=== PATIENT | female | born 1950 | race Caucasian/White ===

== ENCOUNTER 2016-09-07 09:11 | Day surgery (SDC) | payer MEDICARE, BC ==
[2016-09-05 11:34] LABS: PATH.CAST-FLAG NOT PRESENT; SPERM-FLAG NOT PRESENT; SRC-FLAG NOT PRESENT; XTAL-FLAG NOT PRESENT; YLC-FLAG NOT PRESENT
[2016-09-05 11:47] LABS: BLOOD UREA NITROGEN 25 mg/dL (7-18)
[2016-09-05 11:52] LABS: ASPARTATE AMINO TRANSFERASE 22 U/L (15-37)
[~2016-09-07] VITALS: Ht 157.5 cm; Wt 113.5 kg
[~2016-09-07 09:11] MED LIST: ABAT125S SC; ALBU8.5H3 INH; ASPI-621 PO; BENZ100C PO; DICLOFENAC GEL TP; FOLI-17 PO; GABAPENTIN PO; HUM100VI SC; HYDR-3144 PO; LISI-170 PO; LOSA100T6 PO; METF500T4 PO; METH2.5T PO; MULT-520 PO; NATURAL CALCIUM PO; PRED5TAB PO; VITAMIN D3 PO
[2016-09-07] MEDS ORDERED: LACTATED RINGERS 1,000 ML IV SCH (09:34)
[2016-09-07 10:07] VITALS: BP 135/70
[2016-09-07] MEDS ORDERED: MIDAZOLAM 1 MG/ML, 2ML ONE (11:29)
[2016-09-07] MEDS ORDERED: FENTANYL PF 250 MCG/5ML ONE (11:29)
[2016-09-07] MEDS ORDERED: ROCURONIUM 10 MG/ML ONE (12:18)
[2016-09-07] MEDS ORDERED: GLYCOPYRROLATE 0.2MG/1ML ONE (12:18)
[2016-09-07] MEDS ORDERED: PROPOFOL 10 MG/ML, 20ML ONE (12:18)
[2016-09-07] MEDS ORDERED: SUCCINYLCHOLINE 20 MG/ML, 10ML ONE (12:18)
[2016-09-07] MEDS ORDERED: ONDANSETRON 2MG/ML, 2ML ONE (12:18)
[2016-09-07] MEDS ORDERED: NEOSTIGMINE 1 MG/ML, 10ML ONE (12:18)
[2016-09-07] MEDS ORDERED: CEFAZOLIN 1,000 MG ONE (12:18)
[2016-09-07] MEDS ORDERED: ALBUTEROL SULFATE 200 PUFFS/8.5 GR INH ONE (12:18)
[2016-09-07] MEDS ORDERED: MITOMYCIN 40 MG in STERILE WATER 20 ML INTVESIC ONE (12:30)
[2016-09-07] MEDS ORDERED: HYDROcodone/APAP 7.5-325MG/15ML UDC ONE (13:23)
[2016-09-07] MEDS ORDERED: FENTANYL PF 100 MCG/2ML ONE (13:23)
[2016-09-07] MEDS: FENTANYL PF 100 MCG/2ML IV PRN ×2 (13:25→13:42)
[2016-09-07] MEDS ORDERED: MEPERIDINE/PF 25MG/0.5ML IVPush PRN (13:30)
[2016-09-07] MEDS ORDERED: OXYcodone 5 MG/5 ML ORAL.SOL UDC PO PRN (13:30)
[2016-09-07] MEDS ORDERED: ONDANSETRON 2MG/ML, 2ML IVPush PRN (13:30)
[2016-09-07] MEDS ORDERED: EPHEDRINE 50 MG/ML, 1ML IVPush PRN (13:30)
[2016-09-07] MEDS ORDERED: PROMETHAZINE 25 MG/ML, 1ML IV PRN (13:30)
[2016-09-07] MEDS ORDERED: MIDAZOLAM 1 MG/ML, 2ML IV PRN (13:30)
[2016-09-07] MEDS ORDERED: HYDROcodone/APAP 7.5-325MG/15ML UDC PO PRN (13:30)
[2016-09-07] MEDS ORDERED: HYDROmorphone 1 MG/ML, 1ML IV PRN (13:30)
[2016-09-07] MEDS ORDERED: hydrALAzine 20 MG/ML, 1ML IV PRN (13:30)
[2016-09-07] MEDS ORDERED: ACETAMINOPHEN 325 MG TABLET PO PRN (13:30)
[2016-09-07] MEDS ORDERED: LABETALOL 5MG/ML, 20ML IV PRN (13:30)
== END 2016-09-07 15:50 ==
LOC: OUT 09:11
PROVIDERS: ATTEND Urology
DX: D09.0 Carcinoma in situ of bladder (principal); E78.5 Hyperlipidemia, unspecified; E11.9 Type 2 diabetes mellitus without complications; Z79.4 Long term (current) use of insulin; Z87.39 Personal history of other diseases of the musculoskeletal system and connective tissue; Z87.440 Personal history of urinary (tract) infections; Z90.49 Acquired absence of other specified parts of digestive tract; Z98.890 Other specified postprocedural states; Z87.891 Personal history of nicotine dependence
CPT/HCPCS: 36415; 52235; 80053; 81001; 82962; 85025; 85610; 85730; 87086; 88305; 88307; 93005; J0330; J0690; J2250; J2405; J2704; J2710; J3010; J9280; J3490

== ENCOUNTER 2018-05-21 17:11 | Inpatient (IN) | payer MEDICARE, BC ==
[~2018-05-21] VITALS: Ht 157.5 cm; Wt 116.2 kg
[~2018-05-21 17:11] MED LIST changes: -ALBU8.5H3 INH; +ALBU8.5H8 INH; -ASPI-621 PO; +ASPI81TA45 PO; -HYDR-3144 PO; +HYDR-3245 PO; +LOSA100T14 PO; -LOSA100T6 PO; +METF500T17 PO; -METF500T4 PO
[2018-05-21] MEDS ORDERED: SODIUM CHLORIDE FLUSH 10ML SYR IVF ONE ×2 (18:00→19:00)
--- NOTE | 2018-05-21 18:00 | NUR ---
LIBERTAD GORDON FROM [place] FOR ABD PAIN POST BLADDER REMOVAL AND UROSTOMY FOR BLADDER CA. PT PLACED ON MONITOR. PROVIDER AT BEDSIDE
--- NOTE | 2018-05-21 18:33 | NUR ---
PT BACK FROM XRAY, UA SENT. LAB AT BEDSIDE TO DRAW [id number]
[2018-05-21 18:37] LABS: MEAN CORPUSCULAR HEMOGLOBIN 31.9 pg (27.0-34.8); MEAN CORPUSCULAR HGB CONC 32.8 g/dL (32.4-35.8); MEAN CORPUSCULAR VOLUME 97.2 fL (80-100); MEAN PLATELET VOLUME 6.9 fL (7.4-10.4); PLATELET COUNT 390 x10^3/uL (130-400); RED BLOOD COUNT 2.62 x10^6/uL (3.82-5.3); RED CELL DISTRIBUTION WIDTH 17.8 % (9.6-15.2)
[2018-05-21 18:48] LABS: ALBUMIN 1.7 g/dL (3.4-5.0); ANION GAP 8 mmol/L (5-15); CALCIUM 9.3 mg/dL (8.5-10.1); CHLORIDE 98 mmol/L (98-107); CREATININE 4.03 mg/dL (0.55-1.02)
[2018-05-21 18:49] LABS: CULTURE INDICATED? YES; MICROSCOPIC INDICATED
[2018-05-21 18:52] LABS: TROPONIN I < 0.015 ng/mL (0.000-0.045)
[2018-05-21 18:56] LABS: MD YES
[2018-05-21 18:58] LABS: BAND#(MANUAL) 2.18 x10^3/uL; BANDS%(MANUAL) 12 % (0-7); LYMPH#(MANUAL) 0.55 x10^3/uL (1-3.4); LYMPHS% (MANUAL) 3 % (22-44); METAMYELOCYTES# (MANUAL) 0.36 x10^3/uL (0-0); METAMYELOCYTES% (MANUAL) 2 % (0-1); POLYCHROMASIA 1+; SEG#(MANUAL) 15.11 x10^3/uL (1.8-6.8); SEGS% (MANUAL) 83 % (42-75)
[2018-05-21 18:59] LABS: ANISOCYTOSIS 1+; BASOPHILLIC STIPPLING 1+; TOXIC GRAN 1+
[2018-05-21 19:00] LABS: <PLATELET ESTIMATE> ADEQUATE; LARGE PLATELETS 1+
[2018-05-21] MEDS ORDERED: PIPERACILLIN/TAZO/PMX 3.375GM 50 ML IV ONE (19:00)
[2018-05-21] MEDS ORDERED: VANCOMYCIN PER PHARMACY MC PRN ×2 (19:00→22:00)
[2018-05-21] MEDS ORDERED: VANCOMYCIN 1,600 MG in SODIUM CHLORIDE 0.9% 250 ML IV ONE (19:00)
[2018-05-21] MEDS ORDERED: SODIUM CHLORIDE 0.9% 1,000ML IVBOLUS ONE ×2 (19:00→20:00)
--- NOTE | 2018-05-21 19:05 | NUR ---
REPORT RECEIVED FROM VINH GUO.
[2018-05-21] MEDS ORDERED: PIPERACILLIN/TAZO/PMX 3.375GM 50 ML ONE (19:10)
--- NOTE | 2018-05-21 19:20 | NUR ---
PT MEDICATED PER EMAR. PT TOLERATED WELL. PT'S AOX4. RESPS EVEN AND UNLABORED.
--- NOTE | 2018-05-21 19:29 | NUR ---
US AT BEDSIDE.
[2018-05-21] MEDS ORDERED: ACET650S21 PO (19:32)
[2018-05-21] MEDS ORDERED: APIX5TAB PO (19:33)
[2018-05-21] MEDS ORDERED: CALC1CAP8 PO (19:34)
[2018-05-21] MEDS ORDERED: DICLOFENAC SODIUM (19:35)
[2018-05-21] MEDS ORDERED: FERR-51 PO (19:35)
[2018-05-21] MEDS ORDERED: FOLVITE (19:36)
[2018-05-21] MEDS ORDERED: FURO20TA3 PO (19:37)
[2018-05-21] MEDS ORDERED: HYDR200T72 PO (19:38)
[2018-05-21] MEDS ORDERED: POTA20TA89 PO (19:41)
[2018-05-21] MEDS ORDERED: SULF500T PO (19:41)
--- NOTE | 2018-05-21 20:05 | NUR ---
PT PROVIDED WATER. EDMD NOTIFIED.
--- NOTE | 2018-05-21 20:16 | NUR ---
PT IN CT NOW.
--- NOTE | 2018-05-21 20:17 | NUR ---
BP 88/40 AT THIS TIME. EDMD NOTIFIED.
--- NOTE | 2018-05-21 21:07 | NUR ---
PT C/O EAST AT THIS TIME AND REQUESTING MED. EDMD NOTIFIED.
[2018-05-21] MEDS ORDERED: HEPARIN 5,000 UNITS/ML, 1ML IV ONE (21:30)
[2018-05-21] MEDS ORDERED: ONDANSETRON 2MG/ML, 2ML IVPush ONE (21:30)
[2018-05-21] MEDS ORDERED: MORPHINE SULFATE 4 MG/ML, 1ML IVPush PRN (21:30)
[2018-05-21] MEDS ORDERED: HEPARIN 5,000 UNITS/ML, 1ML IV PRN (21:30)
[2018-05-21] MEDS ORDERED: HEPARIN 25,000 UNITS/500ML PMX 500 ML IV PRN (21:30)
[2018-05-21] MEDS ORDERED: POLYETHYLENE GLYCOL 17 GM PACKET PO PRN (22:00)
[2018-05-21] MEDS ORDERED: METHOTREXATE 2.5 MG TABLET PO SCH (22:00)
[2018-05-21] MEDS ORDERED: ACETAMINOPHEN 325 MG TABLET PO PRN (22:00)
[2018-05-21] MEDS ORDERED: BISACODYL 10 MG SUPP PR PRN (22:00)
[2018-05-21] MEDS ORDERED: HEPARIN 25,000 UNITS/500ML PMX 500 ML ONE (22:18)
[2018-05-21] MEDS ORDERED: HEPARIN 5,000 UNITS/ML, 1ML ONE (22:18)
[2018-05-21 22:28] LABS: HCT (SEDRATE) 23.2 % (34.6-47.8)
--- NOTE | 2018-05-21 22:40 | NUR ---
PT MEDICATED PER EMAR. PT TOLERATED WELL. PT'S AOX4. RESPS EVEN AND UNLABORED.
--- NOTE | 2018-05-21 22:41 | NUR ---
REPORT GIVEN TO BECK GUO.
[2018-05-21 23:03] LABS: SEDIMENTATION RATE > 120 mm/hr (0-20)
[2018-05-21] MEDS ORDERED: DEXTROSE 50%, 50ML SYRINGE ONE (23:04)
[2018-05-21 23:10] LABS: HEMOGLOBIN A1C 4.9 % (4.2-6.3)
[2018-05-21] MEDS: DEXTROSE 50%, 50ML SYRINGE IVPush PRN ×2 (23:20→23:44)
[2018-05-21] MEDS: SODIUM CHLORIDE 0.9% 1,000 ML IV SCH (23:23)
[2018-05-21] MEDS: FAMOTIDINE 20 MG/2 ML IVPush SCH (23:25)
[2018-05-21] MEDS: SODIUM CHLORIDE FLUSH 10ML SYR IVF SCH (23:28)
[2018-05-21] MEDS ORDERED: DEXTROSE 50%, 50ML SYRINGE IVPush PRN (23:30)
[2018-05-21] MEDS ORDERED: DEXTROSE 4 GM TAB.CHEW PO PRN ×2 (23:30)
[2018-05-21] MEDS ORDERED: METHOTREXATE MC SCH (23:30)
[2018-05-21] MEDS ORDERED: GLUCAGON 1 MG IM PRN ×2 (23:30)
[2018-05-22] MEDS ORDERED: VANCOMYCIN PER PHARMACY MC PRN (00:30)
[2018-05-22] MEDS ORDERED: PHARMACOKINETIC MONITORING MC PRN (00:30)
[2018-05-22] MEDS: PIPERACILLIN/TAZO/PMX 3.375GM 50 ML IV SCH ×3 (02:01→13:53)
[2018-05-22 02:07] LABS: CREATININE,URINE RANDOM 53.6 mg/dL
[2018-05-22] MEDS ORDERED: VANCOMYCIN 1,800 MG in SODIUM CHLORIDE 0.9% 250 ML IV ONE (03:00)
[2018-05-22 04:50] VITALS: BP 89/65
[2018-05-22 04:56] VITALS: BP 97/50
[2018-05-22 05:44] LABS: MEAN CORPUSCULAR HEMOGLOBIN 31.6 pg (27.0-34.8); MEAN CORPUSCULAR HGB CONC 32.7 g/dL (32.4-35.8); MEAN CORPUSCULAR VOLUME 96.7 fL (80-100); MEAN PLATELET VOLUME 6.5 fL (7.4-10.4); PLATELET COUNT 316 x10^3/uL (130-400); RED BLOOD COUNT 2.24 x10^6/uL (3.82-5.3); RED CELL DISTRIBUTION WIDTH 17.8 % (9.6-15.2)
[2018-05-22 05:50] LABS: CHLORIDE 102 mmol/L (98-107)
[2018-05-22 06:05] LABS: ALANINE AMINOTRANSFERASE 7 U/L (12-78); ALBUMIN 1.5 g/dL (3.4-5.0); ALKALINE PHOSPHATASE 78 U/L (45-117); ANION GAP 9 mmol/L (5-15); CALCIUM 8.7 mg/dL (8.5-10.1); CREATININE 3.85 mg/dL (0.55-1.02); TOTAL PROTEIN 5.4 g/dL (6.4-8.2)
[2018-05-22 06:17] LABS: BASOPHILS % (AUTO) 0 % (0-1); EOSINOPHILS # (AUTO) 0.01 x10^3/uL (0-0.4); EOSINOPHILS % (AUTO) 0 % (1-7); LYMPHOCYTES # (AUTO) 0.49 x10^3/uL (1-3.4); LYMPHOCYTES % (AUTO) 3 % (22-44); MD SCAN; MONOCYTES # (AUTO) 0.44 x10^3/uL (0.2-0.8); MONOCYTES % (AUTO) 3 % (2-9); NEUTROPHILS # (AUTO) 13.75 x10^3/uL (1.8-6.8); NEUTROPHILS % (AUTO) 94 % (42-75)
[2018-05-22] MEDS ORDERED: SODIUM CHLORIDE 0.9% 1,000ML IV ONE (08:30)
[2018-05-22] MEDS ORDERED: SODIUM CHLORIDE FLUSH 10ML SYR IVF SCH ×2 (09:00→21:00)
[2018-05-22] MEDS: SODIUM CHLORIDE 0.9% 1,000 ML IV SCH (09:37)
[2018-05-22] MEDS: CALCIUM/VITAMIN D3 250-125 TABLET PO SCH (09:37)
[2018-05-22] MEDS: MULTIVITAMINS/MINERALS TABLET PO SCH (09:37)
[2018-05-22] MEDS: FERROUS SULFATE 325 MG TABLET PO SCH (09:38)
[2018-05-22] MEDS: SENNA/DOCUSATE TABLET PO SCH (09:38)
[2018-05-22] MEDS: FOLIC ACID 1 MG TABLET PO SCH (09:38)
[2018-05-22] MEDS: SODIUM CHLORIDE FLUSH 10ML SYR IVF SCH ×2 (09:39→19:59)
[2018-05-22] MEDS: FAMOTIDINE 20 MG/2 ML IVPush SCH (09:39)
[2018-05-22 09:57] LABS: MEAN CORPUSCULAR HEMOGLOBIN 31.3 pg (27.0-34.8); MEAN CORPUSCULAR HGB CONC 32.1 g/dL (32.4-35.8); MEAN CORPUSCULAR VOLUME 97.5 fL (80-100); MEAN PLATELET VOLUME 6.8 fL (7.4-10.4); PLATELET COUNT 306 x10^3/uL (130-400); RED BLOOD COUNT 2.27 x10^6/uL (3.82-5.3); RED CELL DISTRIBUTION WIDTH 18.5 % (9.6-15.2)
[2018-05-22] MEDS: HYDROXYCHLOROQUINE 200 MG TABLET PO SCH (10:22)
[2018-05-22] MEDS: SULFASALAZINE 500 MG TABLET PO SCH ×2 (10:22→20:50)
[2018-05-22 10:34] LABS: MD YES
[2018-05-22 10:42] LABS: BAND#(MANUAL) 0.42 x10^3/uL; BANDS%(MANUAL) 3 % (0-7); LYMPH#(MANUAL) 0.28 x10^3/uL (1-3.4); LYMPHS% (MANUAL) 2 % (22-44); MONOS#(MANUAL) 0.56 x10^3/uL (0.3-2.7); MONOS% (MANUAL) 4 % (2-9); MYELOCYTES# (MANUAL) 0.14 x10^3/uL (0-0); MYELOCYTES% (MANUAL) 1 % (0-0); NRBC % (MANUAL) 1 % (0-1)
[2018-05-22 10:43] LABS: METAMYELOCYTES# (MANUAL) 0.14 x10^3/uL (0-0); METAMYELOCYTES% (MANUAL) 1 % (0-1); SEGS% (MANUAL) 89 % (42-75)
[2018-05-22 10:44] LABS: OVALOCYTES 1+; POLYCHROMASIA 1+
[2018-05-22 10:45] LABS: ANISOCYTOSIS 2+; ROULEAUX 1+
[2018-05-22 10:47] LABS: <PLATELET ESTIMATE> ADEQUATE; <PLT MORPHOLOGY> NORMAL PLT MORPH; TOXIC GRAN 2+
[2018-05-22] MEDS: OXYcodone IR 5MG TABLET PO PRN ×3 (12:47→21:28)
[2018-05-22] MEDS ORDERED: DEXTROSE 4 GM TAB.CHEW PO PRN (15:00)
[2018-05-22] MEDS ORDERED: GLUCAGON 1 MG IM PRN (15:00)
[2018-05-22] MEDS ORDERED: DEXTROSE 50%, 50ML SYRINGE IVPush PRN (15:00)
[2018-05-22] MEDS ORDERED: PHARMACY MAY ADJ FOR RENAL FX MC PRN (15:00)
[2018-05-22] MEDS: INSULIN LISPRO 100 UNITS/ML, PEN SQ-INSULIN SCH ×2 (15:51→20:50)
[2018-05-22] MEDS: POTASSIUM CHLORIDE 10 MEQ in D5%-0.45% NACL 1,000 ML IV SCH ×2 (15:52→21:28)
[2018-05-22] MEDS: ONDANSETRON 2MG/ML, 2ML IVPush PRN (16:02)
[2018-05-22] MEDS: PIPERACILLIN/TAZO/PMX 2.25GM 50 ML IV SCH (19:58)
[2018-05-22 20:22] VITALS: BP 106/73
[2018-05-23 00:06] VITALS: BP 105/64
[2018-05-23] MEDS: HEPARIN 25,000 UNITS/500ML PMX 500 ML IV PRN (01:47)
[2018-05-23] MEDS: PIPERACILLIN/TAZO/PMX 2.25GM 50 ML IV SCH ×4 (02:17→20:46)
[2018-05-23 03:57] VITALS: BP 100/66
[2018-05-23] MEDS: POTASSIUM CHLORIDE 10 MEQ in D5%-0.45% NACL 1,000 ML IV SCH ×2 (05:03→15:06)
[2018-05-23 06:57] VITALS: BP 103/69
[2018-05-23] MEDS: HEPARIN 5,000 UNITS/ML, 1ML IV PRN (07:16)
[2018-05-23 08:24] LABS: CLOSTRIDIUM DIFFICILE ANTIGEN POSITIVE; CLOSTRIDIUM DIFFICILE TOXIN NEGATIVE (Negative)
[2018-05-23] MEDS: SENNA/DOCUSATE TABLET PO SCH (09:00)
[2018-05-23] MEDS: MULTIVITAMINS/MINERALS TABLET PO SCH (09:41)
[2018-05-23] MEDS: CALCIUM/VITAMIN D3 250-125 TABLET PO SCH (09:41)
[2018-05-23] MEDS: HYDROXYCHLOROQUINE 200 MG TABLET PO SCH (09:41)
[2018-05-23] MEDS: FERROUS SULFATE 325 MG TABLET PO SCH (09:41)
[2018-05-23] MEDS: FAMOTIDINE 20 MG/2 ML IVPush SCH (09:42)
[2018-05-23] MEDS: SODIUM CHLORIDE FLUSH 10ML SYR IVF SCH ×2 (09:42→20:48)
[2018-05-23] MEDS: FOLIC ACID 1 MG TABLET PO SCH (09:42)
[2018-05-23] MEDS: SULFASALAZINE 500 MG TABLET PO SCH ×2 (09:46→20:47)
[2018-05-23] MEDS: INSULIN LISPRO 100 UNITS/ML, PEN SQ-INSULIN SCH ×4 (10:31→20:48)
[2018-05-23] MEDS ORDERED: VANCOMYCIN 1,800 MG in SODIUM CHLORIDE 0.9% 250 ML IV ONE (12:00)
[2018-05-23] MEDS: morphine SULFATE 10 MG/ML, 1ML IVPush PRN (13:17)
[2018-05-23 19:32] LABS: ALANINE AMINOTRANSFERASE 8 U/L (12-78); ALBUMIN 1.4 g/dL (3.4-5.0); ANION GAP 11 mmol/L (5-15); CALCIUM 8.8 mg/dL (8.5-10.1); CHLORIDE 103 mmol/L (98-107); CREATININE 3.77 mg/dL (0.55-1.02)
[2018-05-23 19:34] LABS: ALKALINE PHOSPHATASE 81 U/L (45-117); BILIRUBIN,TOTAL 0.4 mg/dL (0.2-1.0); TOTAL PROTEIN 5.6 g/dL (6.4-8.2)
[2018-05-23 19:51] LABS: MEAN CORPUSCULAR HEMOGLOBIN 31.8 pg (27.0-34.8); MEAN CORPUSCULAR HGB CONC 32.3 g/dL (32.4-35.8); MEAN CORPUSCULAR VOLUME 98.3 fL (80-100); PLATELET COUNT 309 x10^3/uL (130-400); RED BLOOD COUNT 2.34 x10^6/uL (3.82-5.3)
[2018-05-23 20:20] VITALS: BP 106/66
[2018-05-23 20:26] LABS: MD YES
[2018-05-23 20:28] LABS: <RBC MORPHOLOGY> NORMAL; ANISOCYTOSIS 2+; BAND#(MANUAL) 1.11 x10^3/uL; BANDS%(MANUAL) 7 % (0-7); HYPOCHROMIA 1+; LYMPH#(MANUAL) 0.95 x10^3/uL (1-3.4); LYMPHS% (MANUAL) 6 % (22-44); MICROCYTOSIS 1+; MONOS#(MANUAL) 0.16 x10^3/uL (0.3-2.7); MONOS% (MANUAL) 1 % (2-9); POLYCHROMASIA 1+; SEGS% (MANUAL) 86 % (42-75)
[2018-05-23 20:29] LABS: <PLATELET ESTIMATE> ADEQUATE; <PLT MORPHOLOGY> NORMAL PLT MORPH; OVALOCYTES 1+; TOXIC GRAN 2+
[2018-05-23] MEDS: OXYcodone IR 5MG TABLET PO PRN (20:51)
[2018-05-24 01:48] VITALS: BP 102/60
[2018-05-24] MEDS: PIPERACILLIN/TAZO/PMX 2.25GM 50 ML IV SCH ×4 (02:39→20:22)
[2018-05-24] MEDS: HEPARIN 25,000 UNITS/500ML PMX 500 ML IV PRN (03:00)
[2018-05-24] MEDS: OXYcodone IR 5MG TABLET PO PRN ×2 (06:11→20:23)
[2018-05-24] MEDS: INSULIN LISPRO 100 UNITS/ML, PEN SQ-INSULIN SCH ×4 (07:00→20:23)
[2018-05-24 07:32] LABS: MEAN CORPUSCULAR HEMOGLOBIN 31.1 pg (27.0-34.8); MEAN CORPUSCULAR HGB CONC 31.7 g/dL (32.4-35.8); MEAN CORPUSCULAR VOLUME 98.3 fL (80-100); MEAN PLATELET VOLUME 6.8 fL (7.4-10.4); PLATELET COUNT 350 x10^3/uL (130-400); RED BLOOD COUNT 2.23 x10^6/uL (3.82-5.3); RED CELL DISTRIBUTION WIDTH 18.4 % (9.6-15.2)
[2018-05-24 07:35] LABS: ALANINE AMINOTRANSFERASE 9 U/L (12-78); ALBUMIN 1.4 g/dL (3.4-5.0); ANION GAP 10 mmol/L (5-15); CALCIUM 9.2 mg/dL (8.5-10.1); CHLORIDE 102 mmol/L (98-107); CREATININE 3.59 mg/dL (0.55-1.02)
[2018-05-24 07:38] LABS: ALKALINE PHOSPHATASE 79 U/L (45-117); BILIRUBIN,TOTAL 0.4 mg/dL (0.2-1.0); TOTAL PROTEIN 5.5 g/dL (6.4-8.2)
[2018-05-24 07:59] VITALS: BP 115/67
[2018-05-24 08:07] LABS: MD YES
[2018-05-24 08:09] LABS: BAND#(MANUAL) 0.67 x10^3/uL; BANDS%(MANUAL) 5 % (0-7); EOS#(MANUAL) 0.13 x10^3/uL (0.0-0.4); EOS% (MANUAL) 1 % (1-7); LYMPH#(MANUAL) 0.67 x10^3/uL (1-3.4); LYMPHS% (MANUAL) 5 % (22-44); MONOS#(MANUAL) 0.67 x10^3/uL (0.3-2.7); MONOS% (MANUAL) 5 % (2-9); REACTIVE LYMPHS # (MANUAL) 0.27 x10^3/uL (0-0); REACTIVE LYMPHS % (MANUAL) 2 % (0-0); SEG#(MANUAL) 10.99 x10^3/uL (1.8-6.8); SEGS% (MANUAL) 82 % (42-75)
[2018-05-24 08:10] LABS: ANISOCYTOSIS 1+
[2018-05-24 08:11] LABS: <PLATELET ESTIMATE> ADEQUATE
[2018-05-24 08:12] LABS: <PLT MORPHOLOGY> NORMAL PLT MORPH
[2018-05-24] MEDS: SULFASALAZINE 500 MG TABLET PO SCH ×2 (08:51→20:23)
[2018-05-24] MEDS: FERROUS SULFATE 325 MG TABLET PO SCH (08:51)
[2018-05-24] MEDS: SENNA/DOCUSATE TABLET PO SCH (08:51)
[2018-05-24] MEDS: MULTIVITAMINS/MINERALS TABLET PO SCH (08:51)
[2018-05-24] MEDS: FOLIC ACID 1 MG TABLET PO SCH (08:52)
[2018-05-24] MEDS: FAMOTIDINE 20 MG/2 ML IVPush SCH (08:52)
[2018-05-24] MEDS: SODIUM CHLORIDE FLUSH 10ML SYR IVF SCH ×2 (08:52→20:22)
[2018-05-24] MEDS: HYDROXYCHLOROQUINE 200 MG TABLET PO SCH (08:52)
[2018-05-24] MEDS: CALCIUM/VITAMIN D3 250-125 TABLET PO SCH (08:52)
[2018-05-24] MEDS: morphine SULFATE 10 MG/ML, 1ML IVPush PRN ×2 (08:52→14:41)
[2018-05-24] MEDS: ONDANSETRON 2MG/ML, 2ML IVPush PRN (14:51)
[2018-05-24 14:53] VITALS: BP 124/75
[2018-05-24 19:25] VITALS: BP 114/65
[2018-05-25 01:09] VITALS: BP 119/68
[2018-05-25] MEDS: HEPARIN 25,000 UNITS/500ML PMX 500 ML IV PRN ×2 (01:40→22:38)
[2018-05-25] MEDS: PIPERACILLIN/TAZO/PMX 2.25GM 50 ML IV SCH ×3 (01:42→16:25)
[2018-05-25] MEDS: morphine SULFATE 10 MG/ML, 1ML IVPush PRN ×2 (01:53→09:04)
[2018-05-25] MEDS: INSULIN LISPRO 100 UNITS/ML, PEN SQ-INSULIN SCH ×4 (07:00→21:00)
[2018-05-25 08:00] VITALS: BP 112/51
[2018-05-25 08:12] LABS: MEAN CORPUSCULAR HGB CONC 31.7 g/dL (32.4-35.8); MEAN CORPUSCULAR VOLUME 97.8 fL (80-100); MEAN PLATELET VOLUME 6.8 fL (7.4-10.4); PLATELET COUNT 361 x10^3/uL (130-400); RED BLOOD COUNT 2.27 x10^6/uL (3.82-5.3); RED CELL DISTRIBUTION WIDTH 19.2 % (9.6-15.2)
[2018-05-25 08:15] LABS: ANION GAP 10 mmol/L (5-15); CALCIUM 9.7 mg/dL (8.5-10.1); CHLORIDE 102 mmol/L (98-107); CREATININE 3.93 mg/dL (0.55-1.02)
[2018-05-25 08:31] LABS: MD YES
[2018-05-25 08:32] LABS: BANDS%(MANUAL) 2 % (0-7); LYMPH#(MANUAL) 1.06 x10^3/uL (1-3.4); LYMPHS% (MANUAL) 7 % (22-44); METAMYELOCYTES# (MANUAL) 0.15 x10^3/uL (0-0); METAMYELOCYTES% (MANUAL) 1 % (0-1); MONOS#(MANUAL) 0.45 x10^3/uL (0.3-2.7); MONOS% (MANUAL) 3 % (2-9); SEG#(MANUAL) 13.14 x10^3/uL (1.8-6.8); SEGS% (MANUAL) 87 % (42-75)
[2018-05-25 08:33] LABS: ANISOCYTOSIS 1+
[2018-05-25 08:34] LABS: <PLATELET ESTIMATE> ADEQUATE; <PLT MORPHOLOGY> NORMAL PLT MORPH; POLYCHROMASIA 1+
[2018-05-25] MEDS: FOLIC ACID 1 MG TABLET PO SCH (08:56)
[2018-05-25] MEDS: SENNA/DOCUSATE TABLET PO SCH (08:56)
[2018-05-25] MEDS: MULTIVITAMINS/MINERALS TABLET PO SCH (08:56)
[2018-05-25] MEDS: FERROUS SULFATE 325 MG TABLET PO SCH (08:56)
[2018-05-25] MEDS: CALCIUM/VITAMIN D3 250-125 TABLET PO SCH (08:56)
[2018-05-25] MEDS: SODIUM CHLORIDE FLUSH 10ML SYR IVF SCH ×2 (08:57→22:34)
[2018-05-25] MEDS: ONDANSETRON 2MG/ML, 2ML IVPush PRN (09:04)
[2018-05-25 09:22] LABS: ALANINE AMINOTRANSFERASE 8 U/L (12-78); ALBUMIN 1.4 g/dL (3.4-5.0)
[2018-05-25 09:23] LABS: TOTAL PROTEIN 5.6 g/dL (6.4-8.2)
[2018-05-25 09:26] LABS: ALKALINE PHOSPHATASE 78 U/L (45-117); BILIRUBIN,TOTAL 0.3 mg/dL (0.2-1.0)
[2018-05-25] MEDS ORDERED: SODIUM CHLORIDE 0.9% 1,000 ML IV SCH (09:30)
[2018-05-25] MEDS: ALBUMIN HUMAN 25% 50 ML IV SCH ×2 (13:17→23:23)
[2018-05-25 13:26] VITALS: BP 98/54
[2018-05-25 13:55] LABS: OCCULT BLOOD POSITIVE (NEGATIVE)
[2018-05-25 14:29] VITALS: BP 113/70
[2018-05-25] MEDS: FUROSEMIDE 40 MG/4 ML IV SCH ×2 (14:34→22:34)
[2018-05-25] MEDS ORDERED: LIDOCAINE 1%, 20ML ONE (16:33)
[2018-05-25] MEDS ORDERED: FENTANYL PF 100 MCG/2ML ONE (16:36)
[2018-05-25] MEDS ORDERED: MIDAZOLAM 1 MG/ML, 5ML ONE (16:37)
[2018-05-25] MEDS ORDERED: FLUMAZENIL 0.1 MG/1 ML, 5ML ONE (16:37)
[2018-05-25] MEDS ORDERED: NALOXONE 1 MG/ML, 2ML ONE (16:37)
[2018-05-25 19:23] VITALS: BP 132/77
[2018-05-25] MEDS: HEPARIN 5,000 UNITS/ML, 1ML IV PRN (22:34)
[2018-05-26 00:14] VITALS: BP 110/53
[2018-05-26] MEDS: PIPERACILLIN/TAZO/PMX 2.25GM 50 ML IV SCH ×3 (01:31→15:58)
[2018-05-26 05:18] LABS: ANION GAP 12 mmol/L (5-15); CALCIUM 10.4 mg/dL (8.5-10.1); CHLORIDE 101 mmol/L (98-107); CREATININE 3.89 mg/dL (0.55-1.02)
[2018-05-26 05:22] LABS: MEAN CORPUSCULAR HEMOGLOBIN 32.1 pg (27.0-34.8); MEAN CORPUSCULAR HGB CONC 32.6 g/dL (32.4-35.8); MEAN CORPUSCULAR VOLUME 98.4 fL (80-100); MEAN PLATELET VOLUME 7.1 fL (7.4-10.4); PLATELET COUNT 352 x10^3/uL (130-400); RED BLOOD COUNT 2.36 x10^6/uL (3.82-5.3); RED CELL DISTRIBUTION WIDTH 18.8 % (9.6-15.2)
[2018-05-26] MEDS: HEPARIN 5,000 UNITS/ML, 1ML IV PRN (05:44)
[2018-05-26 05:52] LABS: MD YES
[2018-05-26 05:53] LABS: BAND#(MANUAL) 0.18 x10^3/uL; BANDS%(MANUAL) 1 % (0-7); LYMPH#(MANUAL) 1.06 x10^3/uL (1-3.4); LYMPHS% (MANUAL) 6 % (22-44); MONOS#(MANUAL) 0.88 x10^3/uL (0.3-2.7); MONOS% (MANUAL) 5 % (2-9); NRBC % (MANUAL) 4 % (0-1); SEG#(MANUAL) 15.49 x10^3/uL (1.8-6.8); SEGS% (MANUAL) 88 % (42-75)
[2018-05-26 05:54] LABS: ANISOCYTOSIS 1+; POLYCHROMASIA 1+
[2018-05-26 05:55] LABS: <PLATELET ESTIMATE> ADEQUATE; <PLT MORPHOLOGY> NORMAL PLT MORPH
[2018-05-26] MEDS: INSULIN LISPRO 100 UNITS/ML, PEN SQ-INSULIN SCH ×4 (07:00→19:57)
[2018-05-26] MEDS: ALBUMIN HUMAN 25% 50 ML IV SCH ×2 (07:30→17:22)
[2018-05-26] MEDS: HEPARIN 25,000 UNITS/500ML PMX 500 ML IV PRN (07:49)
[2018-05-26] MEDS: FERROUS SULFATE 325 MG TABLET PO SCH (07:52)
[2018-05-26] MEDS: FOLIC ACID 1 MG TABLET PO SCH (07:52)
[2018-05-26] MEDS: MULTIVITAMINS/MINERALS TABLET PO SCH (07:53)
[2018-05-26] MEDS: CALCIUM/VITAMIN D3 250-125 TABLET PO SCH (07:53)
[2018-05-26] MEDS: SENNA/DOCUSATE TABLET PO SCH (07:53)
[2018-05-26] MEDS: FUROSEMIDE 40 MG/4 ML IV SCH ×2 (07:54→19:55)
[2018-05-26] MEDS: SODIUM CHLORIDE FLUSH 10ML SYR IVF SCH ×2 (07:54→19:55)
[2018-05-26 08:13] VITALS: BP 91/58
[2018-05-26 08:13] LABS: IRON LEVEL 70 mcg/dL (50-170)
[2018-05-26 08:39] LABS: % IRON SATURATION 67 % (20-55); TOTAL IRON BINDING CAPACITY 105 mcg/dL (250-450)
[2018-05-26 08:46] LABS: FOLATE LEVEL > 20.0 ng/mL (3.1-17.5)
[2018-05-26] MEDS ORDERED: ALBUMIN HUMAN 25% 100 ML ONE (10:10)
[2018-05-26] MEDS: OXYcodone IR 5MG TABLET PO PRN ×2 (12:54→19:54)
[2018-05-26 15:02] VITALS: BP 118/74
[2018-05-26 18:35] VITALS: BP 100/55
[2018-05-26] MEDS: morphine SULFATE 10 MG/ML, 1ML IVPush PRN (20:27)
[2018-05-26] MEDS: ONDANSETRON 2MG/ML, 2ML IVPush PRN (20:28)
[2018-05-27 00:11] VITALS: BP 86/53
[2018-05-27] MEDS: PIPERACILLIN/TAZO/PMX 2.25GM 50 ML IV SCH ×3 (01:30→17:21)
[2018-05-27] MEDS: ALBUMIN HUMAN 25% 50 ML IV SCH ×2 (02:23→09:30)
[2018-05-27 03:22] VITALS: BP 105/71
[2018-05-27 05:06] LABS: HCT (SEDRATE) 23.8 % (34.6-47.8)
[2018-05-27 05:08] LABS: MEAN CORPUSCULAR HEMOGLOBIN 32.2 pg (27.0-34.8); MEAN CORPUSCULAR HGB CONC 32.6 g/dL (32.4-35.8); MEAN CORPUSCULAR VOLUME 98.7 fL (80-100); MEAN PLATELET VOLUME 6.9 fL (7.4-10.4); PLATELET COUNT 367 x10^3/uL (130-400); RED BLOOD COUNT 2.37 x10^6/uL (3.82-5.3); RED CELL DISTRIBUTION WIDTH 19.9 % (9.6-15.2)
[2018-05-27 05:20] LABS: ALANINE AMINOTRANSFERASE 10 U/L (12-78); ALBUMIN 1.7 g/dL (3.4-5.0); ANION GAP 17 mmol/L (5-15); CALCIUM 9.9 mg/dL (8.5-10.1); CHLORIDE 98 mmol/L (98-107); CREATININE 4.26 mg/dL (0.55-1.02)
[2018-05-27 05:31] LABS: ALKALINE PHOSPHATASE 78 U/L (45-117); BILIRUBIN,TOTAL 0.6 mg/dL (0.2-1.0); FREE T4 (FREE THYROXINE) 0.91 ng/dL (0.76-1.46); TOTAL PROTEIN 5.6 g/dL (6.4-8.2)
[2018-05-27 05:41] LABS: BASOPHILS % (AUTO) 0 % (0-1); EOSINOPHILS % (AUTO) 0 % (1-7); LYMPHOCYTES # (AUTO) 0.55 x10^3/uL (1-3.4); LYMPHOCYTES % (AUTO) 3 % (22-44); MD SCAN; MONOCYTES # (AUTO) 1.12 x10^3/uL (0.2-0.8); MONOCYTES % (AUTO) 5 % (2-9); NEUTROPHILS # (AUTO) 19.92 x10^3/uL (1.8-6.8); NEUTROPHILS % (AUTO) 92 % (42-75)
[2018-05-27 05:52] LABS: SEDIMENTATION RATE > 120 mm/hr (0-20)
[2018-05-27] MEDS: HEPARIN 25,000 UNITS/500ML PMX 500 ML IV PRN (06:34)
[2018-05-27] MEDS: INSULIN LISPRO 100 UNITS/ML, PEN SQ-INSULIN SCH ×4 (07:00→20:30)
[2018-05-27] MEDS ORDERED: SODIUM CHLORIDE 0.9%, 500ML IVBOLUS ONE (08:30)
[2018-05-27 08:31] LABS: TROPONIN I < 0.015 ng/mL (0.000-0.045)
[2018-05-27] MEDS: PANTOPRAZOLE 40 MG IV IVPush SCH (08:41)
[2018-05-27] MEDS: ONDANSETRON 2MG/ML, 2ML IVPush PRN (08:41)
[2018-05-27] MEDS: morphine SULFATE 10 MG/ML, 1ML IVPush PRN ×2 (08:41→14:05)
[2018-05-27 08:45] VITALS: BP 94/62
[2018-05-27] MEDS: SODIUM CHLORIDE FLUSH 10ML SYR IVF SCH ×2 (09:00→20:30)
[2018-05-27] MEDS: FOLIC ACID 1 MG TABLET PO SCH (09:00)
[2018-05-27] MEDS: SENNA/DOCUSATE TABLET PO SCH (09:00)
[2018-05-27] MEDS: FERROUS SULFATE 325 MG TABLET PO SCH (09:00)
[2018-05-27] MEDS ORDERED: SODIUM CHLORIDE 0.9% 1,000 ML IV SCH (09:30)
[2018-05-27] MEDS ORDERED: NITROGLYCERIN 0.4 MG BOTTLE (25 TABS) SL ONE (10:55)
[2018-05-27] MEDS ORDERED: PROMETHAZINE 25 MG/ML, 1ML IM ONE (11:30)
[2018-05-27] MEDS ORDERED: PROMETHAZINE 25 MG/ML, 1ML ONE (11:33)
[2018-05-27] MEDS: SODIUM BICARBONATE 8.4% 100 MEQ in SODIUM CHLORIDE 0.45% 1,000 ML IV SCH (12:15)
[2018-05-27 13:47] VITALS: BP 116/71
[2018-05-27] MEDS ORDERED: DAPTOMYCIN 700 MG in SODIUM CHLORIDE 0.9% 100 ML IVPB SCH (14:00)
[2018-05-27 14:07] LABS: CREATINE KINASE, TOTAL 86 U/L (26-192); TROPONIN I < 0.015 ng/mL (0.000-0.045)
[2018-05-27 21:00] VITALS: BP 103/69
[2018-05-27 21:35] LABS: TROPONIN I 0.028 ng/mL (0.000-0.045)
[2018-05-28] MEDS: PIPERACILLIN/TAZO/PMX 2.25GM 50 ML IV SCH ×2 (01:28→09:47)
[2018-05-28] MEDS: morphine SULFATE 10 MG/ML, 1ML IVPush PRN (02:48)
[2018-05-28 03:00] VITALS: BP 114/70
[2018-05-28] MEDS: SODIUM BICARBONATE 8.4% 100 MEQ in SODIUM CHLORIDE 0.45% 1,000 ML IV SCH (03:24)
[2018-05-28 06:45] LABS: MEAN CORPUSCULAR HEMOGLOBIN 32.5 pg (27.0-34.8); MEAN CORPUSCULAR HGB CONC 32.9 g/dL (32.4-35.8); MEAN PLATELET VOLUME 7.2 fL (7.4-10.4); PLATELET COUNT 317 x10^3/uL (130-400); RED BLOOD COUNT 2.17 x10^6/uL (3.82-5.3); RED CELL DISTRIBUTION WIDTH 19.8 % (9.6-15.2)
[2018-05-28 06:55] LABS: ALBUMIN 1.6 g/dL (3.4-5.0); CALCIUM 8.6 mg/dL (8.5-10.1); CHLORIDE 98 mmol/L (98-107)
[2018-05-28 06:58] LABS: ANION GAP 22 mmol/L (5-15); CREATININE 5.06 mg/dL (0.55-1.02); MD YES
[2018-05-28 06:59] LABS: ANISOCYTOSIS 1+; BAND#(MANUAL) 0.47 x10^3/uL; BANDS%(MANUAL) 2 % (0-7); LYMPH#(MANUAL) 1.18 x10^3/uL (1-3.4); LYMPHS% (MANUAL) 5 % (22-44); MONOS#(MANUAL) 1.42 x10^3/uL (0.3-2.7); MONOS% (MANUAL) 6 % (2-9); NRBC % (MANUAL) 6 % (0-1); POLYCHROMASIA 1+; SEG#(MANUAL) 20.53 x10^3/uL (1.8-6.8); SEGS% (MANUAL) 87 % (42-75)
[2018-05-28 07:00] LABS: <PLATELET ESTIMATE> ADEQUATE; <PLT MORPHOLOGY> NORMAL PLT MORPH
[2018-05-28] MEDS: INSULIN LISPRO 100 UNITS/ML, PEN SQ-INSULIN SCH ×2 (07:00→11:00)
[2018-05-28] MEDS: FERROUS SULFATE 325 MG TABLET PO SCH (09:00)
[2018-05-28] MEDS: SODIUM CHLORIDE FLUSH 10ML SYR IVF SCH (09:00)
[2018-05-28] MEDS: FOLIC ACID 1 MG TABLET PO SCH (09:00)
[2018-05-28] MEDS: SENNA/DOCUSATE TABLET PO SCH (09:00)
[2018-05-28 09:09] VITALS: BP 91/60
[2018-05-28] MEDS: PANTOPRAZOLE 40 MG IV IVPush SCH (09:46)
== END 2018-05-28 14:27 | disposition hospice, home (50) | DRG 871 ==
LOC: ED 18:01 → EDIP 21:10 → CCU 22:52 → 4WST 05-22 19:00
PROVIDERS: ADMIT Family Medicine; ATTEND Family Medicine
PROC: 0T9B70Z Drainage of Bladder with Drainage Device, Via Natural or Artificial Opening (ICD-10-PCS; 2018-05-21)
PROC: 0W9J30Z Drainage of Pelvic Cavity with Drainage Device, Percutaneous Approach (ICD-10-PCS; principal; 2018-05-25)
PROC: 0D9670Z Drainage of Stomach with Drainage Device, Via Natural or Artificial Opening (ICD-10-PCS; 2018-05-27)
PROC: BW111ZZ Fluoroscopy of Abdomen and Pelvis using Low Osmolar Contrast (ICD-10-PCS; 2018-05-27)
DX: A41.9 Sepsis, unspecified organism (principal); N17.0 Acute kidney failure with tubular necrosis; E43 Unspecified severe protein-calorie malnutrition; L03.115 Cellulitis of right lower limb; L03.116 Cellulitis of left lower limb; E87.1 Hypo-osmolality and hyponatremia; E87.2 Acidosis; C78.6 Secondary malignant neoplasm of retroperitoneum and peritoneum; I82.403 Acute embolism and thrombosis of unspecified deep veins of lower extremity, bilateral; I82.411 Acute embolism and thrombosis of right femoral vein; K56.609 Unspecified intestinal obstruction, unspecified as to partial versus complete obstruction; K92.0 Hematemesis; N30.01 Acute cystitis with hematuria; R18.8 Other ascites; Z68.42 Body mass index [BMI] 45.0-49.9, adult; B95.2 Enterococcus as the cause of diseases classified elsewhere; Z85.51 Personal history of malignant neoplasm of bladder; D50.0 Iron deficiency anemia secondary to blood loss (chronic); E03.9 Hypothyroidism, unspecified; E11.649 Type 2 diabetes mellitus with hypoglycemia without coma; E66.01 Morbid (severe) obesity due to excess calories; E83.52 Hypercalcemia; I10 Essential (primary) hypertension; J45.909 Unspecified asthma, uncomplicated; M06.9 Rheumatoid arthritis, unspecified; R65.20 Severe sepsis without septic shock; Z51.5 Encounter for palliative care; Z79.4 Long term (current) use of insulin; Z90.6 Acquired absence of other parts of urinary tract; Z93.6 Other artificial openings of urinary tract status; Z96.652 Presence of left artificial knee joint
CPT/HCPCS: 36415; 49405; 49406; 71045; 71250; 74022; 74176; 74340; 80048; 80053; 80069; 80202; 81001; 82040; 82272; 82274; 82436; 82550; 82570; 82607; 82728; 82746; 82947; 82962; 83036; 83540; 83550; 83605; 83735; 83880; 84100; 84133; 84145; 84300; 84439; 84443; 84484; 85014; 85018; 85025; 85520; 85651; 86140; 86141; 87040; 87070; 87075; 87077; 87081; 87086; 87186; 87205; 87324; 87493; 93005; 93970; 99156; 99157; 99291; C1894; G0378; J0878; J1644; J1940; J2250; J2405; J2543; J2550; J3010; J3370; J3480; J3490; P9047; C1729; C1769; C9113; J1815; J2270; J2310; J7030; J7040; J7050